=== PATIENT | female | born 1970 | race African-American/Black ===

== ENCOUNTER 2021-07-11 23:55 | Emergency (ER) | payer OTHER ==
--- NOTE | 2021-07-12 00:34 | EDM.PDOC ---
ED HPI GENERAL MEDICAL PROBLEM - General Chief Complaint: Head Injury Stated Complaint: Right sided headache Time Seen by Provider: 07/12/21 00:15 Source of Information: Reports: Patient History Limitations: Reports: No Limitations - History of Present Illness INITIAL COMMENTS - FREE TEXT/NARRATIVE: 51-year-old female presents here to the ER with ongoing right side temporal and frontal forehead headache that started about 2 hours ago when she was getting ready to go to work. She rated the pain then as a 8 out of 10 dull and kind of throbbing and aching. She states she has headaches occasionally and has had them for several years she usually has 1-2 a month. She does have a history of brain surgery down in [place] back in 2017 but she cannot remember what was for she quite understand anything about the surgery. She states that all her follow-ups have always been normal. She does see neurology and Barbara at [facility] she last had an MRI this October which was normal for the chronic headaches that she has. She did take 2 Tylenol about an hour ago and states the pain is better now it is about a 6 out of 10 and seems to be going down but she wanted to come and be checked out anyway. She says that she got her Covid booster yesterday and did not have any issues with the first 2 vaccinations. But since she is had the booster her right arm is been sore and she is had some muscle aches in the right arm and shoulder and now she has a headache and wonders if it has contributed to the booster. She denies this being the worst headache of her life and says it kind of feels like her normal headaches. She denies any vision changes numbness or tingling loss of facial sensation or changes in speech no weakness. She did have a TIA in 2019 and said this was nothing like it she was not treated with anything then. She was seen by neurology and discharged after a day or 2 in the hospital. 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 [Unable to Verify Home Med List] 07/12/21 [History] ED ROS GENERAL - Review of Systems Review Of Systems: See Below Constitutional: Reports: No Symptoms. Denies: Fever, Chills, Malaise, Weakness, Fatigue HEENT: Denies: Dental Pain, Ear Pain, Eye Discharge, Nosebleed, Sinus Problem, Vertigo, Vision Change Respiratory: Reports: No Symptoms Cardiovascular: Reports: No Symptoms Endocrine: Reports: No Symptoms GI/Abdominal: Reports: No Symptoms : Reports: No Symptoms Musculoskeletal: Reports: Muscle Pain, Other (Right deltoid at the Covid shot location) Skin: Reports: No Symptoms Neurological: Reports: No Symptoms Psychiatric: Reports: No Symptoms Hematologic/Lymphatic: Reports: No Symptoms Immunologic: Reports: No Symptoms ED EXAM, HEAD INJURY - Physical Exam Exam: See Below Exam Limited By: No Limitations General Appearance: Alert, WD/WN, No Apparent Distress Head: Atraumatic, Normocephalic, Other (Patient has mild tenderness to palpation over the bilateral sinus cavities/foreheads she has no tenderness palpation over the temporal artery areas) Eyes: Bilateral Eye: EOMI, Normal Inspection (Patient does have noted scarring over the globe and the sclera secondary to past eye surgeries bilateral), PERRL Ears: Normal External Exam, Normal Canal, Hearing Grossly Normal, Normal TMs Nose: Normal Inspection, Normal Mucousa, No Blood Throat/Mouth: Normal Inspection, Normal Lips, Normal Teeth, Normal Gums, Normal Oropharynx, Normal Voice, No Airway Compromise Neck: Non-Tender, Full Range of Motion, Normal Alignment, Normal Inspection Respiratory: No Respiratory Distress, Lungs Clear, Normal Breath Sounds, No Accessory Muscle Use, Chest Non-Tender Cardiovascular: Normal Peripheral Pulses, Regular Rate, Rhythm, No Edema, No Gallop, No JVD, No Murmur, No Rub GI/Abdominal Exam: Normal Bowel Sounds, Soft, Non-Tender, No Organomegaly, No Distention Extremities: Normal Inspection, Normal Range of Motion, Non-Tender, No Pedal Edema, Normal Capillary Refill 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 As Tested, No Motor/Sensory Deficits, Alert, Normal Mood/Affect, Oriented x 3, Other (Patient has equal facial sensation bilateral equal superintendent nonselling normal strength 5 of 5 upper extremity lower extremity bilateral no pronator sway noted) Skin: Normal Color, Warm/Dry - Ermelinda Coma Score [place] Total: 15 Course - Vital Signs Text/Narrative:: Secondary to the patient's headache getting better after 2 Tylenol, 8 down to about a 6 and secondary to her unknown type of brain surgery in the past I will give her 2 mg of morphine IM along with 12.5 mg of Phenergan IM and reassess Recheck patient at 130 states she feels better 10/31she is okay with disposition and treatment and being discharged home - Orders/Labs/Meds Meds: Medications Discontinued Medications Generic Name Dose Route Start Last Admin Trade Name Sly PRN Reason Stop Dose Admin Morphine Sulfate 2 mg 07/12/21 00:37 Morphine 2 Mg/Ml Syringe IM 07/12/21 00:38 ONETIME ONE Promethazine HCl 6.25 mg 07/12/21 00:38 Promethazine 25 Mg/Ml Sdv IM 07/12/21 00:39 ONETIME ONE Departure - Departure Time of Disposition: 01:20 Disposition: Home, Self-Care 01 Condition: Good Clinical Impression: Headache - Discharge Information *PRESCRIPTION DRUG MONITORING PROGRAM REVIEWED*: No *COPY OF PRESCRIPTION DRUG MONITORING REPORT IN PATIENT MAURICIO: No Instructions: General Headache Without Cause, [id number] Forms: ED Department Discharge Additional Instructions: Follow-up with your primary care provider in the next 24 hours You may continue to take Tylenol 325 mg 1 to 2 tablets every 4-6 hours as needed for the next 24 hours You may take ibuprofen 200 mg 1 to 2 tablets every 6-8 hours as needed for the next 24 hours Make sure you drink plenty of fluids Return to the emergency room if anything changes or gets worse - Problem List & Annotations (1) Headache SNOMED Code(s): 85135815 Code(s): R51.9 - HEADACHE, UNSPECIFIED Status: Acute
[2021-07-12] MEDS ORDERED: Morphine 2 MG/ML SYRINGE IM ONE (00:37)
[2021-07-12] MEDS ORDERED: Promethazine 25 MG/ML SDV IM ONE (00:38)
== END 2021-07-12 01:35 | disposition home or self-care (01) ==
LOC: VM.ED 23:55
DX: R51.9 Headache, unspecified (principal)
CPT/HCPCS: 96372; 99283; J2270; J2550

== ENCOUNTER 2023-05-02 00:34 | Emergency (ER) | payer BC, OTHER | END 2023-05-02 01:09 | disposition home or self-care (01) | LOC: VM.ED 00:34 | DX: S61.215A Laceration without foreign body of left ring finger without damage to nail, initial encounter (principal); E11.9 Type 2 diabetes mellitus without complications; Z86.73 Personal history of transient ischemic attack (TIA), and cerebral infarction without residual deficits; W26.9XXA Contact with unspecified sharp object(s), initial encounter | CPT/HCPCS: 99282 ==